=== PATIENT | female | born 1980 ===

== ENCOUNTER → 2018-08-07 21:19 | Outpatient (REF) | payer OTHER, MEDICAID, SELFPAY ==
[2018-08-07 22:18] LABS: Add Manual Diff / Slide Review NO; Basophils Absolute Auto 0 /uL (0-100); Basophils Percent Auto 0.9 % (0-2); Eosinophils Absolute Auto 0 /uL (0-450); Eosinophils Percent Auto 1.3 % (2-4); Hemoglobin 14.2 g/dL (12.0-16.0); Lymphocytes Absolute Auto 1700 /uL (1100-4500); Lymphocytes Percent Auto 45.2 % (25-40); Mean Corpuscular HGB Conc 33.9 % (30-36); Mean Corpuscular Hemoglobin 30.8 PG (26-34); Mean Corpuscular Volume 90.7 fL (80-100); Monocytes Absolute Auto 300 /uL (0-900); Monocytes Percent Auto 7.6 % (3-14); Neutrophils Absolute Auto 1700 /uL (1500-7000); Platelet Count 302 X10^3/uL (150-400); Red Blood Cell Count 4.63 X10^6/uL (4.0-5.2); Red Cell Distribution Width 13.6 % (11.6-14.8); White Blood Cell Count 3.7 X10^3/uL (4.5-11.0)
[2018-08-07 22:50] LABS: Free T3, Triiodothyronine Free 3.37 pg/mL (2.77-5.27); Free T4, Direct Thyroxine 1.03 ng/dL (0.78-2.19)
[2018-08-07 22:52] LABS: Ferritin 28.7 ng/mL (6.27-137)
[2018-08-07 23:04] LABS: Thyroid Stimulating Hormone 4.11 uIU/mL (0.47-4.68)
[2018-08-10 14:05] LABS: CMV IgM Antibody < 30.00 AU/mL (< 30.00)
[2018-08-11 17:38] LABS: Interpretation PAST INFECTION
== END ==
LOC: LAB 21:19
PROVIDERS: Visit Provider Acupuncturist
DX: E06.3 Autoimmune thyroiditis (principal); R53.82 Chronic fatigue, unspecified; F34.1 Dysthymic disorder
CPT/HCPCS: 36415; 82728; 84439; 84443; 84481; 84482; 85025; 86644; 86645; 86790